=== PATIENT | female | born 2005 | race Caucasian/White ===

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

== ENCOUNTER 2023-06-25 23:35 | Emergency (ER) | payer MEDICAID ==
[2023-06-25] MEDS ORDERED: Zofran 4 MG/2 ML VIAL IV ONE (23:47)
[2023-06-25] MEDS ORDERED: Sodium Chloride 0.9% 1000 ML 1,000 ML IV STA (23:47)
[2023-06-25 23:48] VITALS: TEMP 97.6
[2023-06-25] MEDS ORDERED: Sodium Chloride 0.9% 1000 ML 1,000 ML ONE (23:54)
[2023-06-25] MEDS ORDERED: Zofran 4 MG/2 ML VIAL ONE (23:54)
[2023-06-26 00:06] LABS: Absolute Neutrophil Ct (ANC) 8.38 x10^3/uL (1.4-6.9); BASOPHIL % 0.3 % (0.0-0.4); Basophil (Absolute #) 0.04 x10^3/uL (0-0.4); Eosinophil % 1.1 % (0.00-5.0); Eosinophil (Absolute #) 0.13 x10^3/uL (0-0.5); Hematocrit 47.6 % (35-47); Hemoglobin 15.4 g/dL (12.0-16.0); IMMATURE GRAN # 0.04 x10^3u/L (0.00-0.03); IMMATURE GRAN % 0.3 % (0.00-0.4); Lymphocyte (Absolute #) 2.57 x10^3/uL (1.0-4.6); Lymphocytes % 21.7 % (24.0-44.0); Mean Cell Volume 88.8 fL (78-100); Mean Corpuscular Hemoglobin 28.7 pg (26-32); Mean Corpuscular Hgb Concent. 32.4 g/dL (32-36); Mean Platelet Volume 12.7 fL (7.5-11.0); Monocytes % 5.9 % (0.0-12.0); Neutrophil % 70.7 % (36.0-66.0); Platelet Count 226 x10^3/uL (150-450); Red Blood Count 5.36 x10^6/uL (4.1-5.4); Red Cell Distribution Width 12.3 % (11.5-14.0); White Blood Count 11.9 x10^3/uL (4.0-10.5)
[2023-06-26 00:09] LABS: HCG URINE TEST NEGATIVE (NEGATIVE)
[2023-06-26 00:21] LABS: ANION GAP 15.4 MEQ/L (5-15); BILIRUBIN,TOTAL 0.3 mg/dL (0.2-1.3); Calcium 9.4 mg/dL (8.4-10.2); Creatinine 1 0.65 mg/dL (0.52-1.04); EST GLOMERULAR FILTRATION RATE 129.2 ML/MIN; Potassium 3.4 mmol/L (3.5-5.1)
[2023-06-26 00:43] LABS: INFLUENZA A NEGATIVE (NEGATIVE); INFLUENZA B NEGATIVE (NEGATIVE); RESPIRATORY SYNCTIAL VIRUS NEGATIVE (NEGATIVE); SARS-CoV-2 Xpert Express NEGATIVE (NEGATIVE)
[2023-06-26] MEDS ORDERED: Reglan 10 MG/2 ML IV ONE (00:58)
[2023-06-26] MEDS ORDERED: Reglan 10 MG/2 ML ONE (01:00)
[2023-06-26] MEDS ORDERED: Sodium Chloride 0.9% 1000 ML 1,000 ML IV STA (01:03)
[2023-06-26] MEDS ORDERED: Sodium Chloride 0.9% 1000 ML 1,000 ML ONE (01:09)
--- NOTE | 2023-06-26 01:54 | XRAY ---
CLINICAL HISTORY:pain ,n,v COMPARISON:Previous CT dated 08/24/2021. TECHNIQUE:Contiguous axial images were obtained from the level of the diaphragm to the pubic symphysis without intravenous or oral contrast. Coronal and sagittal reconstructions were likewise performed and indicated to increase the sensitivity for detecting clinically relevant pathology. CT scan was performed according to ALARA (as low as reasonable achievable) FINDINGS: The visualized lung bases are clear. Evaluation of the abdominal and pelvic visceral organs is limited without intravenous contrast. The unenhanced liver, spleen, pancreas, and adrenal glands are grossly unremarkable. The gallbladder is present. The kidneys are normal in size and attenuation without obvious calcification. There is no hydronephrosis or perinephric stranding. The ureters are normal in caliber. No adenopathy or fluid collections are seen. No evidence of focal or diffuse bowel wall thickening or evidence of bowel obstruction is seen. The appendix is visualized in the right lower quadrant and appears within normal limits.Intrauterine contraceptive device noted in situ The aorta is normal in caliber. The urinary bladder is normal in contour. Pelvic viscera are grossly unremarkable. No aggressive appearing osseous lesions are identified. IMPRESSION: 1. Unremarkable study. Electronically Signed by: Dr. Roberth Myers MD. (06/26/2023 01:49:51 EST)
[2023-06-26 02:20] LABS: Appearance Clear (Clear); Bacteria None Seen /HPF (None Seen); Bilirubin Negative (Negative); Blood Negative (Negative); Epithelial Cells Rare /HPF (None Seen); Glucose, Urine Negative (Negative); Hyaline Casts NONE SEEN /LPF (0-2); Ketones Trace (Negative); Leukocyte Esterase Negative (Negative); Nitrite Negative (Negative); Protein,Urine Dip Negative (Negative); RBC 0-2 /HPF (0-5); Specific Gravity 1.015 (1.005-1.030); Urobilinogen 0.2 mg/dL (0.2)
[2023-06-26 02:21] LABS: ADD URINE CULTURE? NO (NO)
[2023-06-26] MEDS ORDERED: ANTIVERT 25 MG PO ONE (02:30)
[2023-06-26] MEDS ORDERED: ANTIVERT 25 MG ONE (02:37)
--- NOTE | 2023-06-26 02:40 | ERPHSYRPT ---
- History of Present Illness Time Seen by Provider: 06/25/23 23:50 Historian: patient, family Exam Limitations: no limitations Patient Subjective Stated Complaint: vomiting and diffuse abd pain that started around 2230 Triage Nursing Assessment: pt ambulatory to bed by self with steady gait, pt alert and oriented x3, skin pwd, pt c/o vomiting and diffuse abd pain that started around 2230, pt states she has vomited 7 times. pt states she was baking cookies all day and was eating them throughout the day, pt did request a test during triage Physician History: Patient is a 18-year-old white female presents with vomiting for several hours and diffuse abdominal pain. Her problem started after she spent most of the day baking cookies and eating several of them. She has had episodes of prolonged emesis in the past. She has an IUD in place but did request a test be done. She denies any fever chills or sweats.She has no history of previous abdominal surgery. Timing/Duration: today Activities at Onset: other (Making cookies) Quality: cramping Abdominal Pain Onset Location: epigastric, generalized abdomen Severity of Pain-Max: moderate Modifying Factors: Improves With: nothing Associated Symptoms: denies symptoms Allergies/Adverse Reactions: ALL ANTIBIOTIC NOT ZITHRMAX Allergy (Severe, Uncoded 10/10/22 21:04) Anaphylactic Reaction Patient states she can take Macrobid Hx Tetanus, Diphtheria Vaccination/Date Given: Yes Hx Influenza Vaccination/Date Given: No Hx Pneumococcal Vaccination/Date Given: No Immunizations Up to Date: Yes Travel Risk - International Travel Have you traveled outside of the country in past 3 weeks: No - Coronavirus Screening Are you exhibiting any of the following symptoms?: No Close contact with a COVID-19 positive Pt in past 14-21 Days: No - Vaccine Status Have you recieved a Covid-19 vaccination: No - Review of Systems Constitutional: No Fever, No Chills Eyes: No Symptoms Ears, Nose, & Throat: No Symptoms Respiratory: No Cough, No Dyspnea Cardiac: No Chest Pain, No Edema, No Syncope Abdominal/Gastrointestinal: Abdominal Pain, Nausea, Vomiting, No Diarrhea Genitourinary Symptoms: No Dysuria Musculoskeletal: No Back Pain, No Neck Pain Skin: No Rash Neurological: No Dizziness, No Focal Weakness, No Sensory Changes Psychological: No Symptoms Endocrine: No Symptoms All Other Systems: Reviewed and Negative - Past Medical History Pertinent Past Medical History: No Neurological History: No Pertinent History ENT History: No Pertinent History Cardiac History: Other Respiratory History: Other Endocrine Medical History: Hypothyroidism Musculoskeletal History: No Pertinent History GI Medical History: GERD History: No Pertinent History Psycho-Social History: No Pertinent History Female Reproductive Disorders: Menstrual Problems Other Medical History: 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 Elder's syndrome- stretchy heart valves. Cardiac doctor, Dr. Bear, ok'd pt before arrival. Heavy periods, last 3 weeks. Pt states Wahib told her to take 2 control pills a day to help with bleeding. - Past Surgical History Past Surgical History: Yes Neuro Surgical History: No Pertinent History Cardiac: No Pertinent History Respiratory: No Pertinent History Gastrointestinal: No Pertinent History Genitourinary: No Pertinent History Musculoskeletal: No Pertinent History Female Surgical History: No Pertinent History Other Surgical History: Tonsils and wisdom teeth removed - Social History Smoking Status: Never smoker Exposure to second hand smoke: Yes (Occasionally) Drug Use: none Patient Lives Alone: No - Female History Hx Last Menstrual Period: unk Hx Now: No - Nursing Vital Signs Nursing Vital Signs: Initial Vital Signs Pulse Rate 98 H 06/25/23 23:45 Respiratory Rate 20 06/25/23 23:45 Blood Pressure 144/91 06/25/23 23:45 O2 Sat by Pulse Oximetry 96 06/25/23 23:45 Pain Scale Pain Intensity 8 - Physical Exam General Appearance: mild distress, alert Eye Exam: PERRL/EOMI, eyes nml inspection Ears, Nose, Throat Exam: normal ENT inspection, pharynx normal, moist mucous membranes Neck Exam: normal inspection, non-tender, supple, full range of motion Respiratory Exam: normal breath sounds, lungs clear, No respiratory distress Cardiovascular Exam: regular rate/rhythm, normal heart sounds Gastrointestinal/Abdomen Exam: soft, No tenderness, No mass Back Exam: normal inspection, normal range of motion, No CVA tenderness, No vertebral tenderness Extremity Exam: normal inspection, normal range of motion, pelvis stable Neurologic Exam: alert, oriented x 3, cooperative, normal mood/affect, nml cerebellar function, sensation nml, No motor deficits Skin Exam: normal color, warm, dry SpO2: 100 - Course Nursing assessment & vital signs reviewed: Yes - CT Exams Abdomen/Pelvis CT Interpretation: Tele-radiologist Report Ordered Tests: Active Orders 24 hr Category Date Time Status IV Insertion STAT Care 06/25/23 23:47 Active ABDOMEN AND PELVIS W/0 CONTRAS [CT] Stat Exams 06/26/23 01:25 Completed Lactic Acid Stat Lab 06/25/23 23:47 Completed UA W/RFX UR CULTURE Stat Lab 06/26/23 00:01 Completed Medication Summary Discontinued Medications Generic Name Dose Route Start Last Admin Trade Name Christiano PRN Reason Stop Dose Admin Sodium Chloride 1,000 mls @ 999 mls/hr 06/25/23 23:47 06/26/23 00:59 Sodium Chloride 0.9% 1000 Ml IV 06/26/23 00:47 Infused .Q1H1M STA Infusion Sodium Chloride Confirm 06/25/23 23:54 Sodium Chloride 0.9% 1000 Ml Administered 06/25/23 23:55 Dose 1,000 mls @ ud .ROUTE .STK-MED ONE Sodium Chloride 1,000 mls @ 999 mls/hr 06/26/23 01:03 06/26/23 02:18 Sodium Chloride 0.9% 1000 Ml IV 06/26/23 02:03 Infused .Q1H1M STA Infusion Sodium Chloride Confirm 06/26/23 01:09 Sodium Chloride 0.9% 1000 Ml Administered 06/26/23 01:10 Dose 1,000 mls @ ud .ROUTE .STK-MED ONE Metoclopramide HCl 10 mg 06/26/23 00:58 06/26/23 01:02 Metoclopramide Hcl 10 Mg/2 Ml Vial IV 06/26/23 00:59 10 mg STAT ONE Administration Metoclopramide HCl Confirm 06/26/23 01:00 Metoclopramide Hcl 10 Mg/2 Ml Vial Administered 06/26/23 01:01 Dose 10 mg .ROUTE .STK-MED ONE Ondansetron HCl 4 mg 06/25/23 23:47 06/25/23 23:56 Ondansetron Hcl 4 Mg/2 Ml Vial IV 06/25/23 23:48 4 mg STAT ONE Administration Ondansetron HCl Confirm 06/25/23 23:54 Ondansetron Hcl 4 Mg/2 Ml Vial Administered 06/25/23 23:55 Dose 4 mg .ROUTE .STK-MED ONE Lab/Rad Data: Laboratory Result Diagrams 06/25/23 00:02 06/25/23 00:02 Laboratory Results 06/26/23 06/26/23 06/25/23 Range/Units 00:18 00:01 00:02 WBC (4.0-10.5) x10^3/uL RBC (4.1-5.4) x10^6/uL Hgb (12.0-16.0) g/dL Hct (35-47) % MCV (78-100) fL MCH (26-32) pg MCHC (32-36) g/dL RDW (11.5-14.0) % Plt Count (150-450) x10^3/uL MPV (7.5-11.0) fL Gran % (36.0-66.0) % Immature Gran % (Auto) (0.00-0.4) % Nucleat RBC Rel Count (0.00-0.1) % Eos # (Auto) (0-0.5) x10^3/uL Immature Gran # (Auto) (0.00-0.03) x10^3u/L Absolute Lymphs (auto) (1.0-4.6) x10^3/uL Absolute Monos (auto) (0.0-1.3) x10^3/uL Absolute Nucleated RBC (0.00-0.01) x10^3u/L Lymphocytes % (24.0-44.0) % Monocytes % (0.0-12.0) % Eosinophils % (0.00-5.0) % Basophils % (0.0-0.4) % Absolute Granulocytes (1.4-6.9) x10^3/uL Basophils # (0-0.4) x10^3/uL Sodium (137-145) mmol/L Potassium (3.5-5.1) mmol/L Chloride (98-107) mmol/L Carbon Dioxide (22-30) mmol/L Anion Gap (5-15) MEQ/L BUN (7-17) mg/dL Creatinine (0.52-1.04) mg/dL Estimated GFR ML/MIN Glucose (74-106) mg/dL Lactic Acid 1.0 (0.4-2.0) Calcium (8.4-10.2) mg/dL Total Bilirubin (0.2-1.3) mg/dL AST (14-36) U/L ALT (0-35) U/L Alkaline Phosphatase (38-126) U/L Serum Total Protein (6.3-8.2) g/dL Albumin (3.5-5.0) g/dL Lipase (23-300) U/L Urine Color Yellow (Yellow) Urine Appearance Clear (Clear) Urine pH 7.0 (4.6-8.0) Ur Specific [place] 1.015 (1.005-1.030) Urine Protein Negative (Negative) Urine Glucose (UA) Negative (Negative) mg/dL Urine Ketones Trace A (Negative) Urine Blood Negative (Negative) Urine Nitrite Negative (Negative) Urine Bilirubin Negative (Negative) Urine Urobilinogen 0.2 (0.2) mg/dL Ur Leukocyte Esterase Negative (Negative) U Hyaline Cast (Auto) NONE SEEN (0-2) /LPF Urine Microscopic RBC 0-2 (0-5) /HPF Urine Microscopic WBC 3-5 (0-5) /HPF Ur Epithelial Cells Rare (None Seen) /HPF Urine Bacteria None Seen (None Seen) /HPF Urine Culture Reflexed NO (NO) Urine HCG, Qual (NEGATIVE) Influenza Type A Ag NEGATIVE (NEGATIVE) Influenza Type B Ag NEGATIVE (NEGATIVE) RSV (PCR) NEGATIVE (NEGATIVE) SARS-CoV-2 (PCR) NEGATIVE (NEGATIVE) 06/25/23 06/25/23 06/25/23 Range/Units 00:02 00:02 00:02 WBC 11.9 H (4.0-10.5) x10^3/uL RBC 5.36 (4.1-5.4) x10^6/uL Hgb 15.4 (12.0-16.0) g/dL Hct 47.6 H (35-47) % MCV 88.8 (78-100) fL MCH 28.7 (26-32) pg MCHC 32.4 (32-36) g/dL RDW 12.3 (11.5-14.0) % Plt Count 226 (150-450) x10^3/uL MPV 12.7 H (7.5-11.0) fL Gran % 70.7 H (36.0-66.0) % Immature Gran % (Auto) 0.3 (0.00-0.4) % Nucleat RBC Rel Count 0.0 (0.00-0.1) % Eos # (Auto) 0.13 (0-0.5) x10^3/uL Immature Gran # (Auto) 0.04 H (0.00-0.03) x10^3u/L Absolute Lymphs (auto) 2.57 (1.0-4.6) x10^3/uL Absolute Monos (auto) 0.70 (0.0-1.3) x10^3/uL Absolute Nucleated RBC 0.00 (0.00-0.01) x10^3u/L Lymphocytes % 21.7 L (24.0-44.0) % Monocytes % 5.9 (0.0-12.0) % Eosinophils % 1.1 (0.00-5.0) % Basophils % 0.3 (0.0-0.4) % Absolute Granulocytes 8.38 H (1.4-6.9) x10^3/uL Basophils # 0.04 (0-0.4) x10^3/uL Sodium 137 (137-145) mmol/L Potassium 3.4 L (3.5-5.1) mmol/L Chloride 103 (98-107) mmol/L Carbon Dioxide 22 (22-30) mmol/L Anion Gap 15.4 H (5-15) MEQ/L BUN 12 (7-17) mg/dL Creatinine 0.65 (0.52-1.04) mg/dL Estimated GFR 129.2 ML/MIN Glucose 107 H (74-106) mg/dL Lactic Acid (0.4-2.0) Calcium 9.4 (8.4-10.2) mg/dL Total Bilirubin 0.30 (0.2-1.3) mg/dL AST 35 (14-36) U/L ALT 30 (0-35) U/L Alkaline Phosphatase 67 (38-126) U/L Serum Total Protein 8.0 (6.3-8.2) g/dL Albumin 3.1 L (3.5-5.0) g/dL Lipase 48 (23-300) U/L Urine Color (Yellow) Urine Appearance (Clear) Urine pH (4.6-8.0) Ur Specific [place] (1.005-1.030) Urine Protein (Negative) Urine Glucose (UA) (Negative) mg/dL Urine Ketones (Negative) Urine Blood (Negative) Urine Nitrite (Negative) Urine Bilirubin (Negative) Urine Urobilinogen (0.2) mg/dL Ur Leukocyte Esterase (Negative) U Hyaline Cast (Auto) (0-2) /LPF Urine Microscopic RBC (0-5) /HPF Urine Microscopic WBC (0-5) /HPF Ur Epithelial Cells (None Seen) /HPF Urine Bacteria (None Seen) /HPF Urine Culture Reflexed (NO) Urine HCG, Qual NEGATIVE (NEGATIVE) Influenza Type A Ag (NEGATIVE) Influenza Type B Ag (NEGATIVE) RSV (PCR) (NEGATIVE) SARS-CoV-2 (PCR) (NEGATIVE) - Progress Progress: improved Medical Desision Making - Independent Historian Additional History obtained from: Spouse - Diagnostic Testing Diagnostic test were ordered, analyzed, and reviewed by me: Yes Radiological Interpretation: Reviewed by me - Risk of complications Low Risk: Low risk of morbidity from additional dx testing or treatment - Departure Departure Disposition: Home Clinical Impression: Emesis Condition: Stable Critical Care Time: No Referrals: TORY GORDON [Primary Care Provider] - Follow up/PCP as directed Instructions: Gastritis (DC) Additional Instructions: N.p.o. for 6 hours Prescriptions: Metoclopramide HCl 10 mg [Reglan 10 MG] 10 mg PO Q6H PRN PRN 3 Days #12 tablet PRN Reason: Nausea/Vomiting Ondansetron ODT 4 MG [Zofran Odt 4 mg] 4 mg PO Q6H PRN PRN #10 tablet PRN Reason: Vomiting
[2023-06-26 02:41] VITALS: BP 115/79
[2023-06-26] MEDS ORDERED: Reglan 10 MG ONE (02:42)
[2023-06-26] MEDS ORDERED: ZOFRAN ODT 4 MG ONE (02:42)
[2023-06-26] MEDS ORDERED: ZOFRAN ODT 4 MG PO ONE (02:44)
[2023-06-26 03:03] VITALS: PULSE 92; RESP 15; O2SAT 99
[2023-06-26] MEDS ORDERED: Reglan 10 MG PO SCH (07:30)
[2023-07-01 10:41] LABS: ALBUMIN 4.8 g/dL (3.5-5.0)
== END 2023-06-26 03:03 | disposition home or self-care (01) ==
LOC: ED 23:35
DX: R11.10 Vomiting, unspecified (principal); R10.84 Generalized abdominal pain; Z28.310 Unvaccinated for COVID-19
CPT/HCPCS: 0241U; 36000; 36415; 74176; 80053; 81001; 81025; 83605; 83690; 85025; 96360; 96374; 99284; J2405; Q0162; A9270-GY